=== PATIENT | female | born 2000 | race Caucasian/White ===

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

== ENCOUNTER 2021-10-08 18:10 | Emergency (ER) | payer OTHER ==
[~2021-10-08] VITALS: Ht 157.5 cm; Wt 65.0 kg
[~2021-10-08 18:10] MED LIST: CEPHALEXIN500 M1 PO
[2021-10-08 20:10] LABS: URINE BILIRUBIN - DIPSTICK NEGATIVE (NEGATIVE); URINE BLOOD DIPSTICK NEGATIVE (NEGATIVE); URINE COLOR YELLOW; URINE GLUCOSE - DIPSTICK NEGATIVE (NEGATIVE); URINE KETONE NEGATIVE (NEGATIVE); URINE LEUK ESTERASE NEGATIVE (NEGATIVE); URINE PROTEIN - DIPSTICK NEGATIVE (NEG-TRACE); URINE UROBILINOGEN - DIPSTICK 0.2 E.U./dL (0.2)
[2021-10-08 20:11] LABS: URINE NITRITE - DIPSTICK NEGATIVE (Negative)
[2021-10-08] MEDS ORDERED: NAPROXEN500 MG PO (21:43)
[2021-10-08] MEDS ORDERED: METHOCARBAMOL500 MG PO (21:43)
[2021-10-08 22:36] VITALS: BP 118/63
[2021-10-08 23:00] VITALS: BP 108/65
[2021-10-08 23:05] VITALS: BP 108/65
== END 2021-10-08 23:10 | disposition home or self-care (01) | DRG 552 ==
LOC: ED 18:10
PROVIDERS: Nurse Practitioner
DX: S16.1XXA Strain of muscle, fascia and tendon at neck level, initial encounter (principal); S39.012A Strain of muscle, fascia and tendon of lower back, initial encounter; V43.52XA Car driver injured in collision with other type car in traffic accident, initial encounter